=== PATIENT | male | born 1995 | race Caucasian/White ===

== ENCOUNTER 2019-11-24 04:58 | Emergency (ER) | payer MEDICAID ==
[~2019-11-24] VITALS: Ht 170.2 cm; Wt 70.5 kg
[2019-11-24 05:05] VITALS: BP 153/110
[2019-11-24 05:37] LABS: CLARITY,URINE CLEAR (Clear); COLOR,URINE YELLOW (Yellow); GLUCOSE, URINE NEGATIVE (Neg); KETONES,URINE 15 mg/dl (Neg); LEUKOCYTE ESTERASE ,URINE NEGATIVE (Neg); NITRITES, URINE NEGATIVE (Neg); OCCULT BLOOD,URINE NEGATIVE (Neg); PH,URINE 5.5 (4.8-8.0); PROTEIN,URINE NEGATIVE (Neg)
[2019-11-24 05:40] LABS: UA COLLECTION TYPE CLN CATCH MIDSTREAM
[2019-11-24] MEDS ORDERED: SULF1TAB49 PO (06:34)
== END 2019-11-24 06:40 | disposition home or self-care (01) ==
LOC: ER 04:58
DX: N50.811 Right testicular pain (principal); Z79.2 Long term (current) use of antibiotics
CPT/HCPCS: 76870; 81003; 93976; 99284